=== PATIENT | male | born 1995 | race Caucasian/White ===

== ENCOUNTER 2024-01-18 22:27 | Emergency (ER) | payer OTHER, SELFPAY ==
[2024-01-18 22:29] VITALS: BP 149/101; PULSE 67; RESP 16; TEMP 37.1; O2SAT 95; BMI 23.6
--- NOTE | 2024-01-18 22:59 | EKG12_ITS ---
Test Reason : GEN ILLNESS Blood Pressure : */* mmHG Vent. Rate : 70 BPM Atrial Rate : 70 BPM P-R Int : 134 ms QRS Dur : 100 ms QT Int : 396 ms P-R-T Axes : 58 66 68 degrees QTcB Int : 427 ms Normal sinus rhythm Normal ECG No previous ECGs available Confirmed by JACINTO PALMER MD ([id number]), ALEA Mills ([id number]) on 01/26/2024 11:03:15 AM Also confirmed by JACINTO PALMER MD ([id number]), ALEA Mills ([id number]) on 01/26/2024 11:03:55 AM Referred By: MAHENDRA Confirmed By: JACINTO PALMER MD
[2024-01-18 23:10] LABS: Absolute Lymphocyte Count 3.82 X10^3/uL (0.83-4.51); Absolute Neutrophil Count 2.7 X10^3/uL (2.0-7.7); Basophil# 0.09 X10^3/uL; Basophil% 1.2 % (0-1); Eosinophil# 0.26 X10^3/uL; Eosinophils% 3.4 % (0-5); Hematocrit 43.8 % (40-54); Hemoglobin 15.2 g/dL (13.0-16.5); Lymphocyte # 3.82 X10^3/ul (0.83-4.51); Lymphocyte % 50.5 % (19-41); Mean Corp Hgb Conc 34.7 g/dL (32-36); Mean Corpuscular Hgb 31.2 pg (27.0-32.0); Mean Corpuscular Volume 89.9 fL (80-94); Mean Platelet Vol. 10.3 fl (6.2-12.0); Monocyte# 0.65 X10^3/uL; Monocyte% 8.6 % (0-10); NRBC Flagged by Analyzer 0 % (0-5); Neutrophil # 2.73 X10^3/uL (2.7-7.7); Platelet Count 281 K/mm3 (150-450); RBC Distribution Width CV 11.9 % (11.6-14.6); RBC Distribution Width SD 38.6 fl (35.1-43.9); Red Blood Count 4.87 M/mm3 (4.6-6.2); White Blood Count 7.6 K/mm3 (4.4-11.0)
--- NOTE | 2024-01-18 23:22 | RAD_ITS ---
STUDY: X-RAY CHEST REASON FOR EXAM: Male, 28 years old patient with chest pain. TECHNIQUE: PA and lateral views of the chest. COMPARISON: Chest radiograph dated February 16, 2012. FINDINGS: Cardiac monitoring leads are present. The lungs are clear and hyperexpanded. There is no demonstrated pleural abnormality. Normal size heart. Normal mediastinum and crystal. Normal visualized pulmonary arteries. Normal visualized aortic arch and descending thoracic aorta. Normal visualized thoracic spine. Normal visualized ribs, clavicles, and shoulders. There is no demonstrated abnormality of the visualized soft tissue structures of the upper abdomen. RAD/Chest PA and Lateral IMPRESSION: No radiographic evidence of acute cardiopulmonary disease. Electronically Signed: Leila Mondragon MD at 0:23 EST ,
[2024-01-18] MEDS: 0.9% Normal Saline (1000mL) 1,000 ML 999 ML IV (23:26)
[2024-01-18 23:27] LABS: D-Dimer Quantitative (DVT/PE) 0.27 FEU/ug/m (0.27-0.49)
[2024-01-18] MEDS: Ketorolac 15 MG/ML Vial 30 MG IV (23:27)
[2024-01-18 23:29] LABS: Anion Gap 3 (5-15); BUN 9 mg/dL (7-18); BUN/Creat Ratio 9.9 RATIO (10-20); Calcium,Total 8.9 mg/dL (8.5-10.1); Chloride 112 mmol/L (98-107); Creatinine, Serum 0.91 mg/dL (0.70-1.30); EST Glomerular Filtration Rate 105 mL/min (>60); Est Glom Filt Rate - Afr Amer 126 mL/min (>60); Estimated Creatinine Clearance 127.57 ml/min; Glucose 105 mg/dL (74-106); Magnesium 2.5 mg/dL (1.6-2.6); Potassium 3.6 mmol/L (3.5-5.1); Sodium Level 148 mmol/L (136-145); Troponin-I HS 4 pg/mL (3.0-78.0)
[2024-01-18 23:43] LABS: Amphetamine Urine VISTA NEGATIVE (<1000 ng/mL); Barbiturate Urine VISTA NEGATIVE (< 200 ng/mL); Benzodiazepine Urine VISTA NEGATIVE (< 200 ng/mL); Cocaine Urine VISTA NEGATIVE (< 300 ng/mL); Ecstacy Urine VISTA NEGATIVE (< 500 ng/mL); Methadone Urine VISTA NEGATIVE (< 300 ng/mL); PCP Urine VISTA NEGATIVE (< 25 ng/mL); THC Urine VISTA NEGATIVE (< 50 ng/mL)
[2024-01-18] MEDS: Lidocaine 2% Viscous15 ML UDC 15 ML PO (23:55)
[2024-01-18] MEDS: Mag Hydrox/Al Hydrox/Simeth 30 ML UDC PO (23:55)
[2024-01-19] MEDS: Famotidine 200 MG/20 ML MDV 20 MG in 0.9% Normal Saline (Pres. free 8 ML 300 MG IV (00:09)
--- NOTE | 2024-01-19 00:25 | EX.ED.DYSGE1 ---
HPI History of Present Illness Chief Complaint: General Illness Informant: patient and spouse/S.O. Narrative Narrative: Patient is a 28-year-old Miguel male with no reported significant past medical history. Reportedly he has had mild cough for the past few days and then today began with midsternal chest discomfort. Patient denies any family history of cardiac disease at a young age. He denies any recent travel surgery or history of DVT/PE. He denies any excessive stimulant use or illicit drug use. According to family/spouse she reports he is also been acting abnormally. Patient denies any recent trauma which could have caused this chest discomfort but with his progression of symptoms and reportedly altered mental status he was brought to the ER for evaluation [facility] Medical History no medical history no medical history Home Medications ?Medication ?Instructions ?Recorded ?Last Taken ?Type NK 01/18/24 Unknown History Allergy/AdvReac Type Severity Reaction Status Date / Time No Known Allergies Allergy Verified 01/18/24 22:29 Social History Smoking Status: Never smoker [facility] ED Constitutional Constitutional ED: Denies chills or fever(s) Eyes Eyes: Denies blurry vision or change in vision ENT ENT ED: Denies sore throat Cardiovascular Cardiovascular: Reports chest pain; Denies palpitations or racing heartbeat Respiratory/Chest Respiratory/Chest: Reports cough; Denies dyspnea Gastrointestinal Gastrointestinal: Denies abdominal pain, diarrhea, nausea or vomiting Genitourinary Genitourinary ED: Denies dysuria Musculoskeletal Musculoskeletal: Denies back pain Integumentary Denies rash Neurologic Neurologic: Denies headache(s) Hematologic/Lymphatic Hematologic/Lymphatic: Denies easy bleeding or easy bruising EXAM Physical Exam Const Vital Signs: 01/18/24 22:29 Temperature 98.7 F Temperature Source Temporal Pulse Rate 67 Respiratory Rate 16 Blood Pressure 149/101 H Blood Pressure Mean 117 Pulse Ox 95 Oxygen Delivery Method Room Air Positive well nourished and well developed General Appearance ED: well developed; Negative for pallor HEENT HEENT Narrative: Normocephalic atraumatic Eyes EOMs intact bilaterally Eyes Narrative: Pupils are dilated and slightly sluggish to respond to light with scleral injection noted concerning for alcohol use Neck supple Neck Narrative: No nuchal rigidity or meningeal signs Chest Wall Chest Narrative: There is reproducible anterior chest wall pain along the costal joints of the sternum. Patient states this is the same pain he has been experiencing. No overlying abrasions or ecchymosis. No erythema or warmth No bony deformity or crepitance noted Resp normal respiratory effort and clear to auscultation bilaterally Cardio regular rate and regular rhythm Rate: other Other Details: Heart is regular rate and rhythm without murmurs rubs or gallops No carotid bruit Radial and carotid pulses are equal and symmetric GI normal to inspection, nondistended, normoactive bowel sounds, non-tender, non-distended and no masses GI Narrative: No voluntary guarding or rigidity or pulsatile mass Auscultation: normoactive bowel sounds Palpation: soft Extremity normal to inspection Extremity Narrative: No asymmetric edema no pitting edema negative Homans' sign bilaterally Neuro oriented x3, CN's II-XII intact bilaterally and no sensory deficits noted Neuro Narrative: GCS of 14; patient is resting with his eyes closed but will awake/open to voice Cranial nerves II through XII are grossly intact there are no focal neurologic deficits Patient does take a few seconds to respond to questions but when does so he does seem to answer appropriately No pronator drift no dysmetria no truncal ataxia NIH stroke scale score of 0 Sensorium / Orientation: alert Motor Exam: strength 5/5 throughout Psych Psych Narrative: Patient has a depressed/flat affect Skin no rashes or lesions noted and no wounds Skin Narrative: No overlying soft tissue changes to suggest trauma or infection General Skin Exam: Negative for jaundice or pallor MDM MDM MDM Narrative Medical decision making narrative: Patient arrived to ER hypertensive but otherwise with stable vitals. There were conflicting reports about why the patient was in the ER this evening. The patient was reporting vague anterior chest discomfort without trauma and also stated he had a cough for a few days. His reported that she felt he was acting abnormally. Differential diagnosis is for acute coronary syndrome versus cardiac dysrhythmia versus costochondritis versus pneumonia versus pneumothorax. There is potential for myocarditis versus PE or dissection. Patient also could just have altered mental status secondary to infection or intoxication or illicit drug use. As he had no signs of physical trauma and his neurologic exam was normal I felt that his change in mental status was most likely alcohol and/or drug induced. A alcohol value and urine drug screen were ordered. Urine drug screen was negative alcohol was elevated at 366 consistent with intoxication and reason for altered mental status. Therefore I felt no need for a head CT at this time or further workup regarding his report of acting abnormally per as the alcohol value would explain this. A troponin was obtained which was normal which correlates with normal EKG not showing ischemic or dysrhythmia findings and his D-dimer was normal going against PE or dissection. This coupled with the fact that his chest pain is reproducible indicates this is most likely chest wall in nature. His chest x-ray did not reveal lung pathology such as pneumonia pneumothorax or rib fracture. Therefore at this time as we have an explanation for his apparent altered mental status and the alcohol intoxication and he is low risk for cardiovascular disease and his workup is negative he is otherwise safe for discharge History & Record Review Discussion w/independent historian: Patient and Significant other Lab Data Attestation: I reviewed the patient's lab results. Labs: Laboratory Results - last 24 hr 01/18/24 01/18/24 22:50 23:00 WBC 7.6 RBC 4.87 Hgb 15.2 Hct 43.8 MCV 89.9 MCH 31.2 MCHC 34.7 RDW Std Deviation 38.6 RDW Coeff of Liyah 11.9 Plt Count 281 MPV 10.3 Immature Gran % (Auto) 0.300 Neut % (Auto) 36.0 L Lymph % (Auto) 50.5 H Monroe % (Auto) 8.6 Eos % (Auto) 3.4 Baso % (Auto) 1.2 H Absolute Neuts (auto) 2.7 Absolute Lymphs (auto) 3.82 Nucleated RBC % 0 D-Dimer Quant (PE/DVT) 0.27 Sodium 148 H Potassium 3.6 Chloride 112 H Carbon Dioxide 32.0 Anion Gap 3 L BUN 9 Creatinine 0.91 Estim Creat Clear Calc 127.57 Est GFR (MDRD) Af Amer 126 Est GFR (MDRD) Non-Af 105 BUN/Creatinine Ratio 9.9 L Glucose 105 Calcium 8.9 Magnesium 2.5 Troponin I High Sens 4 Urine Opiates Screen NEGATIVE Urine Methadone Screen NEGATIVE Ur Barbiturates Screen NEGATIVE Ur Phencyclidine Scrn NEGATIVE Ur Amphetamines Screen NEGATIVE MDMA (Ecstasy) Screen NEGATIVE U Benzodiazepines Scrn NEGATIVE Urine Cocaine Screen NEGATIVE U Cannabinoids Screen NEGATIVE Ur Drug Screen Comment Ethyl Alcohol 366.0 H* Radiography Diagnostic Testing: Clinical Impression(s) from Imaging Studies Chest X-Ray 01/18/24 23:22 IMPRESSION: No radiographic evidence of acute cardiopulmonary disease. Electronically Signed: Leila Mondragon MD at 0:23 EST Reading Location ID and State: [address] [place] [address] , Service support , 2 view chest x-ray as interpreted by the emergency medicine physician reveals no acute infiltrate pneumothorax or pleural effusion or widening of the mediastinum Discharge Plan Triage Chief Complaint: General Illness ED Provider: Landen Villasenor Dx/Rx/DC Orders Clinical Impression: Chest wall pain, Alcohol intoxication, Hypertension Instructions: ED Chest Pain, Noncardiac, ED Alcohol Intoxication Prescriptions: No Action NK Primary Care Provider: Farhan De Paz Referrals: Farhan De Paz, [Primary Care Provider] - Print Language: [place] Disposition Disposition: Home, Self Care Discharge Date/Time: 01/19/24 00:34
[2024-01-19 06:15] LABS: Vista UDS pH Range 5
== END 2024-01-19 00:34 | disposition home or self-care (01) ==
PROVIDERS: Emergency Provider Emergency Medicine; PCP Family Medicine; Visit Provider Emergency Medicine
DX: R07.89 Other chest pain (principal); R05.9 Cough, unspecified; I10 Essential (primary) hypertension; F10.129 Alcohol abuse with intoxication, unspecified
CPT/HCPCS: 71046; 80048; 80307; 82077; 83735; 84484; 85025; 85379; 93005; 96361; 96365; 96375; 99283